=== PATIENT | female | born 2000 | race Caucasian/White ===

== ENCOUNTER 2022-11-29 00:19 | Inpatient (IN) | payer BC, OTHER ==
[~2022-11-29] VITALS: Ht 170.2 cm; Wt 97.5 kg
[2022-11-29] MEDS ORDERED: PREN1TAB78 PO (01:10)
[2022-11-29] MEDS ORDERED: [UNRECOGNIZED DRUG - OTHER] (01:10)
[2022-11-29] MEDS ORDERED: FERR325T6 PO (01:10)
[2022-11-29] MEDS ORDERED: METHYLERGONOVINE MALEATE 0.2 MG/ML IM PRN (03:15)
[2022-11-29] MEDS ORDERED: BUTORPHANOL TARTRATE 2 MG/ML VIAL IV PRN ×2 (03:15→14:15)
[2022-11-29] MEDS ORDERED: CARBOPROST TROMETHAMINE 250 MCG/ML AMPUL IM PRN (03:15)
[2022-11-29] MEDS ORDERED: OXYTOCIN 30 UNITS/500ML NS PMX 500 ML IV SCH ×2 (03:15→14:30)
[2022-11-29] MEDS ORDERED: NALOXONE HCL 0.4 MG/ML 1ML VIAL IM PRN (03:15)
[2022-11-29] MEDS ORDERED: LIDOCAINE HCL 1% 20ML VIAL (Pyxis) INJ INFIL SCH (03:15)
[2022-11-29] MEDS ORDERED: MISOPROSTOL 100MCG TABLET VG SCH (03:15)
[2022-11-29] MEDS ORDERED: PENICILLIN G POTASSIUM 5 MMU in DEXT 5% WATER 100 ML IV SCH (03:30)
[2022-11-29 05:41] LABS: CLARITY URINE CLEAR (CLEAR); COLOR URINE YELLOW (YELLOW); KETONES URINE NEGATIVE (NEGATIVE); LEUKOCYTE ESTERASE URINE 2+ (NEGATIVE); NITRITE URINE NEGATIVE (NEGATIVE); OCCULT BLOOD URINE NEGATIVE (NEGATIVE); PROTEIN URINE NEGATIVE (NEGATIVE); SPECIFIC GRAVITY URINE 1.006 (1.005-1.030); UROBILINOGEN URINE 0.2 E.U./dL (0.2-1.0)
[2022-11-29 05:46] LABS: INR 0.9; PARTIAL THROMBOPLASTIN TIME 29.9 sec (23.4-31.0); PROTHROMBIN TIME 9.8 sec (9.6-11.0)
[2022-11-29 05:53] LABS: BASOPHILS % 0.2 % (0.0-2.0); CHLORIDE 109 mEq/L (98-107); EOSINOPHILS % 0.8 % (0.0-5.0); HEMATOCRIT. 34.9 % (36.0-48.0); HEMOGLOBIN. 11.8 g/dL (12.0-16.0); LYMPHOCYTES % 18.7 % (20.0-50.0); MEAN CORPUSCULAR HEMOGLOBIN 27.6 pg (28.0-32.0); MEAN CORPUSCULAR VOLUME 81.8 fL (81.0-99.0); MONOCYTES % 6.3 % (2.0-8.0); PLATELET 136 x1000/uL (130-400); RED BLOOD CELL COUNT 4.27 mill/uL (4.2-5.4); RED CELL DISTRIBUTION WIDTH 16.7 % (11.6-14.6)
[2022-11-29] MEDS: LACTATED RINGERS 1,000 ML IV SCH ×2 (05:58→10:13)
[2022-11-29 06:23] LABS: *AMPHETAMINES SCREEN URINE NEGATIVE (NEGATIVE); *BARBITURATES SCREEN URINE NEGATIVE (NEGATIVE); *BENZODIAZEPINES SCREEN URINE NEGATIVE (NEGATIVE); *COCAINE SCREEN URINE NEGATIVE (NEGATIVE); CANNABINOID URINE SCREEN NEGATIVE (NEGATIVE); METHADONE URINE SCREEN NEGATIVE (NEGATIVE); OPIATES URINE SCREEN NEGATIVE (NEGATIVE); PHENCYCLIDINE URINE SCREEN NEGATIVE (NEGATIVE)
[2022-11-29 07:09] LABS: HEPATITIS B SURFACE ANTIGEN NEGATIVE
[2022-11-29] MEDS ORDERED: PENICILLIN G POTASSIUM 2.5 MMU in DEXTROSE 5% WATER 50 ML IV SCH (08:00)
[2022-11-29] MEDS ORDERED: OXYTOCIN 10 UNITS/ML 1ML ONE (13:14)
[2022-11-29] MEDS ORDERED: ONDANSETRON HCL 4MG/2ML INJ ONE (13:14)
[2022-11-29] MEDS ORDERED: FENTANYL CITRATE/PF 50MCG/ML 2ML VIAL ONE (13:14)
[2022-11-29] MEDS ORDERED: CEFAZOLIN SODIUM 1000MG/VIAL ONE (13:14)
[2022-11-29] MEDS ORDERED: METOCLOPRAMIDE HCL 10MG/2ML VIAL ONE (13:49)
[2022-11-29] MEDS ORDERED: KETOROLAC 60MG/2ML VIAL IM ONE (14:03)
[2022-11-29] MEDS ORDERED: DIPHENHYDRAMINE 50MG/ML VIAL ONE (14:03)
[2022-11-29] MEDS ORDERED: NALOXONE HCL 0.4 MG/ML 1ML VIAL IV PRN (14:15)
[2022-11-29] MEDS ORDERED: DIPHENHYDRAMINE 50MG/ML VIAL IV PRN (14:15)
[2022-11-29] MEDS ORDERED: KETOROLAC 30MG/ML VIAL IV SCH (14:15)
[2022-11-29] MEDS ORDERED: BISACODYL 10MG SUPP PR PRN (14:30)
[2022-11-29] MEDS ORDERED: RHO(D) IMMUNE GLOBULIN 300 MCG/SYR IM PRN (14:30)
[2022-11-29] MEDS ORDERED: IBUPROFEN 400MG TABLET PO PRN (14:30)
[2022-11-29] MEDS ORDERED: ONDANSETRON HCL 4MG/2ML INJ IV PRN (14:30)
[2022-11-29] MEDS ORDERED: HEMORRHOIDAL SUPP PR PRN (14:30)
[2022-11-29] MEDS ORDERED: NALOXONE HCL 0.4MG/ML VIAL IV PRN (15:00)
[2022-11-29 17:30] VITALS: BP 122/72
[2022-11-29 17:45] VITALS: BP 127/71
[2022-11-29 18:00] VITALS: BP 121/67
[2022-11-29 20:00] VITALS: BP 109/54
[2022-11-29] MEDS ORDERED: DIPHENHYDRAMINE 25MG CAPSULE PO PRN (21:00)
[2022-11-29] MEDS: MAGNESIUM/ALUMINUM HYDROXIDE/SIMETHICONE 30ML UDC PO SCH (22:50)
[2022-11-29] MEDS: SIMETHICONE 80MG TABLET CHEW PO SCH (22:50)
[2022-11-29] MEDS: DOCUSATE SODIUM 100MG CAPSULE PO SCH (22:50)
[2022-11-30] VITALS: BP 108/70
[2022-11-30 04:00] VITALS: BP 109/60
[2022-11-30 06:35] LABS: BASOPHILS % 0.1 % (0.0-2.0); EOSINOPHILS % 0.2 % (0.0-5.0); HEMATOCRIT. 31.4 % (36.0-48.0); HEMOGLOBIN. 10.4 g/dL (12.0-16.0); LYMPHOCYTES % 9.4 % (20.0-50.0); MEAN CORPUSCULAR HEMOGLOBIN 27.3 pg (28.0-32.0); MEAN CORPUSCULAR VOLUME 82.7 fL (81.0-99.0); MONOCYTES % 6.6 % (2.0-8.0); NEUTROPHILS % 83.7 % (40.0-76.0); PLATELET 110 x1000/uL (130-400); RED CELL DISTRIBUTION WIDTH 17.1 % (11.6-14.6)
[2022-11-30] MEDS: IBUPROFEN 800MG TABLET PO PRN ×3 (08:11→22:47)
[2022-11-30] MEDS: MAGNESIUM/ALUMINUM HYDROXIDE/SIMETHICONE 30ML UDC PO SCH ×4 (08:12→22:46)
[2022-11-30] MEDS: LANOLIN OINT 7GM TUBE TOP PRN (08:13)
[2022-11-30] MEDS: SIMETHICONE 80MG TABLET CHEW PO SCH ×4 (08:13→22:47)
[2022-11-30 08:30] VITALS: BP 112/74
[2022-11-30] MEDS: FERROUS SULFATE 325MG TABLET PO SCH (12:51)
[2022-11-30 15:00] VITALS: BP 120/70
[2022-11-30] MEDS: HYDROCODONE/ACETAMINOPHEN 5/325MG TABLET PO PRN (17:26)
[2022-11-30 20:00] VITALS: BP 111/67
[2022-11-30] MEDS: DOCUSATE SODIUM 100MG CAPSULE PO SCH (22:46)
[2022-12-01 04:30] VITALS: BP 102/66
[2022-12-01] MEDS: IBUPROFEN 800MG TABLET PO PRN ×3 (05:06→21:55)
[2022-12-01 08:00] VITALS: BP 107/68
[2022-12-01] MEDS: MAGNESIUM/ALUMINUM HYDROXIDE/SIMETHICONE 30ML UDC PO SCH ×3 (08:27→21:55)
[2022-12-01] MEDS: FERROUS SULFATE 325MG TABLET PO SCH ×2 (08:27→15:16)
[2022-12-01] MEDS: SIMETHICONE 80MG TABLET CHEW PO SCH ×3 (08:28→21:55)
[2022-12-01] MEDS: PRENATAL VIT/FE FUMARATE/FA TABLET PO SCH (08:28)
[2022-12-01] MEDS: HYDROCODONE/ACETAMINOPHEN 5/325MG TABLET PO PRN (08:32)
[2022-12-01 16:00] VITALS: BP 105/71
[2022-12-01 19:30] VITALS: BP 117/74
[2022-12-01] MEDS: DOCUSATE SODIUM 100MG CAPSULE PO SCH (21:55)
[2022-12-01] MEDS: LANOLIN OINT 7GM TUBE TOP PRN (21:56)
[2022-12-02 04:00] VITALS: BP 113/66
[2022-12-02] MEDS: IBUPROFEN 800MG TABLET PO PRN (04:38)
[2022-12-02 07:15] VITALS: BP 108/65
[2022-12-02] MEDS: MAGNESIUM/ALUMINUM HYDROXIDE/SIMETHICONE 30ML UDC PO SCH (07:30)
[2022-12-02] MEDS: SIMETHICONE 80MG TABLET CHEW PO SCH (08:00)
[2022-12-02] MEDS: PRENATAL VIT/FE FUMARATE/FA TABLET PO SCH (08:18)
[2022-12-02] MEDS: FERROUS SULFATE 325MG TABLET PO SCH (08:18)
== END 2022-12-02 13:45 | disposition home or self-care (01) | DRG 787 ==
LOC: OBSVTOIN 00:19 → 8 EST LDRP 00:19 → 8EST 15:45
PROVIDERS: ADMIT Obstetrics & Gynecology; ATTEND Obstetrics & Gynecology
PROC: 10D00Z1 Extraction of Products of Conception, Low, Open Approach (ICD-10-PCS; principal; 2022-11-29)
DX: O36.63X0 Maternal care for excessive fetal growth, third trimester, not applicable or unspecified (principal); D62 Acute posthemorrhagic anemia; O99.12 Other diseases of the blood and blood-forming organs and certain disorders involving the immune mechanism complicating childbirth; O99.214 Obesity complicating childbirth; O24.92 Unspecified diabetes mellitus in childbirth; D69.6 Thrombocytopenia, unspecified; Z20.822 Contact with and (suspected) exposure to COVID-19; O99.02 Anemia complicating childbirth; Z37.0 Single live birth; Z3A.40 40 weeks gestation of pregnancy; Z68.31 Body mass index [BMI] 31.0-31.9, adult
CPT/HCPCS: 36415; 76805; 76818; 80053; 80305; 81003; 85025; 86592; 86703; 86762; 86850; 86900; 87340; 87426; 88307; 99281; G0378; J0690; J1200; J1885; J2405; J2540; J2765; J3010; J7060; J7120; Q0163; A4315; J2590

== ENCOUNTER 2022-12-18 00:08 | Emergency (ER) | payer BC, OTHER ==
[~2022-12-18] VITALS: Ht 170.2 cm; Wt 88.6 kg
[2022-12-18 00:14] VITALS: BP 122/75
[2022-12-18 01:29] LABS: BASOPHILS % 0.5 % (0.0-2.0); HEMATOCRIT. 37.4 % (36.0-48.0); HEMOGLOBIN. 12.5 g/dL (12.0-16.0); LYMPHOCYTES % 27.1 % (20.0-50.0); MEAN CORPUSCULAR HEMOGLOBIN 26.9 pg (28.0-32.0); MEAN CORPUSCULAR VOLUME 80.7 fL (81.0-99.0); MEAN PLATELET VOLUME 9.7 fl (7.4-10.4); MONOCYTES % 6.7 % (2.0-8.0); NEUTROPHILS % 62.7 % (40.0-76.0); PLATELET 263 x1000/uL (130-400); RED BLOOD CELL COUNT 4.64 mill/uL (4.2-5.4); RED CELL DISTRIBUTION WIDTH 16.6 % (11.6-14.6)
[2022-12-18 01:45] LABS: CHLORIDE 111 mEq/L (98-107)
[2022-12-18] MEDS ORDERED: BO1 TP (02:25)
== END 2022-12-18 03:02 | disposition home or self-care (01) ==
LOC: ER 00:08
DX: Z48.00 Encounter for change or removal of nonsurgical wound dressing (principal)
CPT/HCPCS: 36415; 80053; 85025; 99283; Z7610